=== PATIENT | male | born 1975 | race Caucasian/White ===

== ENCOUNTER 2023-06-13 13:55 | Emergency (ER) | payer BC, OTHER ==
[2023-06-13 14:27] LABS: BASOPHILS # (AUTO) 0.1 10^3/uL (0.0-0.1); BASOPHILS % (AUTO) 0.8 %; EOSINOPHILS % (AUTO) 0.3 %; HCT - HEMATOCRIT 52.3 % (42.0-52.0); HGB - HEMOGLOBIN 17.1 g/dL (14.0-18.0); LYMPHOCYTES # (AUTO) 2.6 10^3/uL (1.5-3.5); LYMPHOCYTES % (AUTO) 24.4 %; MEAN CORPUSCULAR HEMOGLOBIN 28.8 pg (27.0-31.0); MEAN CORPUSCULAR HGB CONC 32.7 g/dL (32.0-36.0); MEAN CORPUSCULAR VOLUME 88.2 fL (80.0-94.0); MEAN PLATELET VOLUME 11.3 fL (7.4-11.4); MONOCYTES % (AUTO) 9.1 %; NEUTROPHILS # (AUTO) 6.8 10^3/uL (1.5-6.6); NEUTROPHILS % (AUTO) 64.9 %; PLT - PLATELET COUNT 269 10^3/uL (130-450); RED BLOOD COUNT 5.93 10^6/uL (4.70-6.10); RED CELL DISTRIBUTION WIDTH 12.3 % (12.0-15.0); VBG BASE EXCESS 2.7 mmol/L (-2 - +2); VBG HCO3 29.7 mmol/L (23-28); VBG PCO2 53.4 mmHg (41-51); VBG PH 7.363 (7.31-7.41); VBG PO2 23.7 mmHg (25-47); VBG TOTAL CO2 31.3 mmol/L (24-29); WHITE BLOOD COUNT 10.4 x10^3/uL (4.8-10.8)
[2023-06-13 14:38] LABS: KETONES, SERUM (ACETEST) NEGATIVE (NEGATIVE)
[2023-06-13 14:40] LABS: LIPASE 10 U/L (11-82)
[2023-06-13 14:42] LABS: ALBUMIN 4.6 g/dL (3.2-5.5); ALBUMIN/GLOBULIN RATIO 1.3 (1.0-2.2); ALKALINE PHOSPHATASE 157 IU/L (42-121); ALT ALANINE AMINOTRANSFERASE 59 IU/L (10-60); AST ASPARTATE AMINOTRANSFERASE 30 IU/L (10-42); BILIRUBIN,TOTAL 1.6 mg/dL (0.2-1.0); BUN - BLOOD UREA NITROGEN 16 mg/dL (6-20); CARBON DIOXIDE - CO2 32 mmol/L (21-32); CHLORIDE 86 mmol/L (101-111); CREATININE 1.3 mg/dL (0.6-1.3); GFR - MDRD 59 (>89); GLUCOSE 707 mg/dL (74-104); POTASSIUM 3.8 mmol/L (3.5-4.5); SODIUM 129 mmol/L (135-145); TOTAL PROTEIN 8.1 g/dL (6.4-8.9)
[2023-06-13 14:59] LABS: ESTIMATED AVERAGE GLUCOSE 295 mg/dL (70-100); HEMOGLOBIN A1c% 11.9 % (4.27-6.07)
[2023-06-13] MEDS ORDERED: INSULIN REGULAR HUMAN 300 UNIT/3 ML VIAL SUBQ STA (15:29)
[2023-06-13] MEDS ORDERED: SODIUM CHLORIDE 0.9% 1,000 ML IV STA (15:29)
--- NOTE | 2023-06-13 15:47 | ED Physician Documentation ---
History of Present Illness - Stated complaint Stated Complaint: DIZZINESS,HIGH BLOOD SUGAR - Chief complaint Chief Complaint: General - History obtained from History obtained from: Patient - History of Present Illness Pain level max: 0 Pain level now: 0 - Additonal information Additional information: Patient is a 48-year-old male who presents to the urgency department stating that he felt lightheaded and nauseated this morning. No vomiting. Went to the walk-in clinic where they checked his blood sugar and it read "high" on the glu cometer. He is not having any pain currently. No fevers. No chills. He states he does take blood pressure medication at home. Has not seen a primary care provider in over a year. He has had increased urination over the past 4 to 5 days. He states his vision feels slightly blurry as well. Review of Systems Constitutional: denies: Fever, Chills Respiratory: denies: Cough GI: reports: Nausea. denies: Vomiting, Diarrhea Skin: denies: Rash Musculoskeletal: denies: Neck pain, Back pain Neurologic: denies: Headache, LOC PD PAST MEDICAL HISTORY - Past Medical History Past Medical History: Yes Cardiovascular: Congestive heart failure, Hypertension Respiratory: Sleep apnea Neuro: None Endocrine/Autoimmune: None GI: None : None HEENT: None Psych: None Musculoskeletal: None Derm: None - Past Surgical History Past Surgical History: Yes General: Cholecystectomy HEENT: Tonsil/Adenoidectomy - Present Medications Home Medications: Ambulatory Orders Medication Instructions Recorded Confirmed Amlodipine Besylate [Norvasc] 1 tab PO DAILY 06/13/23 06/13/23 Losartan [Cozaar] 1 tab PO DAILY 06/13/23 06/13/23 hydroCHLOROthiazide [Hydrodiuril] 1 tab PO DAILY 06/13/23 06/13/23 - Allergies Allergies/Adverse Reactions: Allergies Allergy/AdvReac Type Severity Reaction Status Date / Time No Known Drug Allergies Allergy Verified 06/13/23 14:00 - Social History Does the pt smoke?: No Smoking Status: Never smoker Does the pt drink ETOH?: No Does the pt have substance abuse?: No - Immunizations Immunizations are current?: Yes PD ED PE NORMAL - Vitals Vital signs reviewed: Yes - General General: Alert and oriented X 3, No acute distress - HEENT HEENT: PERRL, Moist mucous membranes - Neck Neck: Supple, no meningeal sign - Cardiac Cardiac: RRR, Strong equal pulses - Respiratory Respiratory: No respiratory distress, Clear bilaterally - Abdomen Abdomen: Soft, Non tender, Non distended - Derm Derm: Warm and dry - Extremities Extremities: No edema, No calf tenderness / cord - Neuro Neuro: Alert and oriented X 3 - Psych Psych: Normal mood, Normal affect Results - Vitals Vitals: Vital Signs - 24 hr 06/13/23 06/13/23 14:00 17:26 Temperature 36.8 C Heart Rate 100 91 Respiratory 18 16 Rate Blood Pressure 150/100 H 143/85 H O2 Saturation 92 95 Oxygen O2 Source Room air - Labs Labs: Laboratory Tests 06/13/23 06/13/23 06/13/23 14:10 14:19 14:19 WBC 10.4 RBC 5.93 Hgb 17.1 Hct 52.3 H MCV 88.2 MCH 28.8 MCHC 32.7 RDW 12.3 Plt Count 269 MPV 11.3 Neut # (Auto) 6.8 H Lymph # (Auto) 2.6 Wells # (Auto) 1.0 Eos # (Auto) 0.0 Baso # (Auto) 0.1 Absolute Nucleated RBC 0.00 Nucleated RBC % 0.0 VBG pH VBG pCO2 VBG pO2 VBG HCO3 VBG Total CO2 VBG O2 Saturation VBG Base Excess Sodium 129 L Potassium 3.8 Chloride 86 L Carbon Dioxide 32 Anion Gap 11.0 BUN 16 Creatinine 1.3 Estimated GFR (MDRD) 59 L Glucose 707 H* POC Whole Bld Glucose Estimat Average Glucose Hemoglobin A1c % Calcium 10.0 Total Bilirubin 1.6 H AST 30 ALT 59 Alkaline Phosphatase 157 H Total Protein 8.1 Albumin 4.6 Globulin 3.5 Albumin/Globulin Ratio 1.3 Lipase 10 L Urine Color YELLOW Urine Clarity CLEAR Urine pH 6.0 Ur Specific [place] <=1.005 Urine Protein NEGATIVE Urine Glucose (UA) >=1000 H Urine Ketones TRACE Urine Occult Blood NEGATIVE Urine Nitrite NEGATIVE Urine Bilirubin NEGATIVE Urine Urobilinogen 0.2 (NORMAL) Ur Leukocyte Esterase NEGATIVE Ur Microscopic Review NOT INDICATED Urine Culture Comments NOT INDICATED Serum Ketones NEGATIVE 06/13/23 06/13/23 06/13/23 14:19 14:19 17:12 WBC RBC Hgb Hct MCV MCH MCHC RDW Plt Count MPV Neut # (Auto) Lymph # (Auto) Wells # (Auto) Eos # (Auto) Baso # (Auto) Absolute Nucleated RBC Nucleated RBC % VBG pH 7.363 VBG pCO2 53.4 H VBG pO2 23.7 L VBG HCO3 29.7 H VBG Total CO2 31.3 H VBG O2 Saturation 44.0 L VBG Base Excess 2.7 H Sodium Potassium Chloride Carbon Dioxide Anion Gap BUN Creatinine Estimated GFR (MDRD) Glucose POC Whole Bld Glucose 485 H Estimat Average Glucose 295 H Hemoglobin A1c % 11.9 H Calcium Total Bilirubin AST ALT Alkaline Phosphatase Total Protein Albumin Globulin Albumin/Globulin Ratio Lipase Urine Color Urine Clarity Urine pH Ur Specific [place] Urine Protein Urine Glucose (UA) Urine Ketones Urine Occult Blood Urine Nitrite Urine Bilirubin Urine Urobilinogen Ur Leukocyte Esterase Ur Microscopic Review Urine Culture Comments Serum Ketones PD Medical Decision Making - ED course Complexity details: reviewed results, re-evaluated patient, considered differential, d/w patient ED course: Patient was given IV fluids, insulin. Blood sugar decreased. His average blood sugars around 300 at home. He has an appointment with his PCP in the morning, therefore no medication is prescribed tonight. Will allow his PCP to choose the diabetic medication of preference in the morning. Patient counseled to avoid sugars and follow a diabetic diet. No evidence of DKA. Nausea resolved. Tolerating p.o. without difficulty here. Patient is well-appearing, nontoxic. Afebrile. Patient counseled regarding signs and symptoms for which I believe and urgent re-evaluation would be necessary. Patient with good understanding of and agreement to plan and is comfortable going home at this time This document was made in part using voice recognition software. While efforts are made to proofread this document, sound alike and grammatical errors may occur. Departure - Departure Disposition: 01 Home, Self Care Clinical Impression: New onset type 2 diabetes mellitus Condition: Good Instructions: ED Hyperglycemia New Susp Diabetes Follow-Up: [facility] [Provider Group] - Within 1 week Comments: Your blood sugar today was 700 upon arrival to the emergency department. It is down to 485 after IV fluids and insulin. You are given metformin here as well. Your hemoglobin A1c is 11.9. Your estimated average glucose is 295. Your creatinine is 1.3 with an estimated GFR of 59. Your liver function test show a mildly elevated alkaline phosphatase at 157, your AST is 30 and ALT is 59. As you have an appointment with your primary care provider in the morning, we will hold off on prescribing medications tonight and allow them to start you on medication for your diabetes tomorrow. You need to limit your sugar intake, limit your carbohydrate intake and follow-up closely with your doctor as scheduled in the morning. Please return if you worsen. Forms: PCP List Discharge Date/Time: 06/13/23 17:38
[2023-06-13 16:36] LABS: BILIRUBIN,URINE NEGATIVE (NEGATIVE); GLUCOSE, URINE (UA) >=1000 mg/dL (NEGATIVE); KETONES,URINE (UA) TRACE mg/dL (NEGATIVE); LEUKOCYTE ESTERASE, URINE NEGATIVE (NEGATIVE); NITRITE,URINE NEGATIVE (NEGATIVE); OCCULT BLOOD,URINE NEGATIVE (NEGATIVE); PROTEIN,URINE NEGATIVE (NEGATIVE); UROBILINOGEN,URINE 0.2 (NORMAL) E.U./dL (NORMAL)
[2023-06-13 16:40] LABS: CLARITY,URINE CLEAR (CLEAR)
[2023-06-13] MEDS ORDERED: metFORMIN 500 MG TABLET PO STA (17:23)
[2023-06-13 17:33] VITALS: BP 143/85; O2SAT 95
== END 2023-06-13 17:38 | disposition home or self-care (01) ==
LOC: ED 13:55
DX: E11.9 Type 2 diabetes mellitus without complications (principal); I10 Essential (primary) hypertension
CPT/HCPCS: 36415; 80053; 81003; 82009; 82803; 83036; 83690; 85025; 96360; 99283; A9270; J1815; 81001; 87086

== ENCOUNTER 2023-07-12 11:00 | Outpatient (CLI) | payer BC, OTHER ==
--- NOTE | 2023-07-12 11:51 | Sleep Patient Instructions ---
Sleep Center Visit Summary - Patient Visit Information Reason for Visit: Initial consult for evaluation of sleep disordered breathing and other sleep issues. - Patient Instructions Additional Instructions: You will continue with CPAP therapy with pressure set at 4-10 cmH2O. A supply prescription will be updated with your chosen DME supplier. We encourage you to continue to try to lose weight. Please follow up with the sleep care office in 1 year. - Clinic Information Contact: [facility] [address] [place] [address] [email or web address] T: [phone]
--- NOTE | 2023-07-12 11:56 | SLEEP CARE CONSULTATION ---
Information from patient questionnaire entered by Luther Sloan. I have reviewed and concur with the information entered by Luther Sloan. This document represents the service I personally performed and the decisions made by me, Kathy Schultz ARNP. History of Present Illness Service Date and Time: 07/12/2023 1100 Reason for Visit: New patient, Previously diagnosed sleep apnea, sleep apnea on CPAP therapy Chief Complaint: reports: Other (Update supplies) Date of Onset: 2014 Usual bedtime: 10 PM Time it takes to fall asleep: 10 minutes Snores at night: Yes Observed to quit breathing while asleep: Yes Sleeps alone due to snoring: No Number of times waking at night: 2-3 Reasons for waking at night: reports: Snoring, Bathroom, Other (Unknown reason) Toss, Turn, or Twitch while sleeping: Yes Recalls having dreams: No Usually gets out of bed at: 0630 Feels refreshed in the morning: No Morning headache: Yes (After shower) Sleepy or fatigued during the day: Yes Ever fallen asleep while driving: Yes Takes day naps: Yes Dreams during day naps: No Prior sleep studies: Yes Year and Where: 2021 [facility] Type of Sleep Study: Polysomnography Additional HPI information: GIOVANI BAIRD was previously diagnosed to have severe, AHI 40.2, obstructive sleep apnea-hypopnea syndrome as seen in sleep study dated 10/06/21 through [facility] in [facility] and comes in today to establish care for CPAP therapy. - Parasomnia Symptoms Ever been unable to move upon waking from sleep: No Walks in sleep: No Talks in sleep: No Ever acted out dreams in sleep: No Ever felt weak in the knees when startled or emotional: No Bothered by creepy, crawly, restless sensations in legs: Yes Problems with memory or concentration: Yes CPAP Compliance Data - Data Reviewed with Patient Average duration of nightly device use: 8 hours 15 minutes Compliance rate %: 99 (179/180 days used; 01/14/23-07/12/23) Current pressure setting (cmH2O): 4-10 Average residual AHI: 1.5 Central apnea: 0.2 Obstructive apnea: 0.7 Average large leak: 4.8 L/min Compliance data discussion: He has a ResMed Airsense 10. He is using a full face mask, ResMed Quattro, small cushion. He has not been able to get supplies since he retired from about a year ago. Subjective Missed days of use due to: reports: travel Patient concerns: reports: mask leak noise. denies: aerophagia, mask discomfort, air blowing in eyes, condensation in mask/hose, nasal congestion, dr y mouth, nose, throat, epistaxis Observed to snore while using device: No Current pressure setting perceived as: comfortable On therapy, patient: reports: sleeping better, awakening more refreshed, being more awake and alert during the day, more rested overall. 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 Patient is and lives in [place]. Have you smoked in the past 12 months: No Alcohol use: Yes Alcohol amount and frequency: Minimal, minimal Caffeine use: No Family History Family history of sleep disordered breathing: No Allergies and Home Medications Known drug allergies: No Drug allergies reviewed: Yes Home medication list reviewed: Yes Allergy and home medication list: Allergies No Known Drug Allergies Allergy (Verified 06/13/23 14:00) Medications: HCTZ 25 mg daily Amlodipine 10 mg daily Losartan 50 mg daily Metformin 500 mg twice a day rosuvastatin (thinks this is the right -statin) Review of Systems Cardiovascular: reports: high blood pressure Gastrointestinal: reports: heartburn, diarrhea Urinary: reports: frequency, urgency Neurological: reports: headaches Psychiatric: reports: anxiety Ear/Nose/Throat: reports: nasal congestion, sinus problems Physical Exam Vital signs obtained and entered by: Kathy Crowley NP Blood Pressure: 122/69 Cuff size: wrist (right) Heart Rate: 89 O2 Saturation: 94 Height: 5 ft 11 in Weight: 319 lb 12.8 oz Body Mass Index: 44.6 BMI Classification: Morbidly Obese Heart: regular rate and rhythm Lungs: clear bilaterally Impression and Plan 1. Obstructive Sleep Apnea-Hypopnea Syndrome, severe, with good treatment compliance and good apnea control. On CPAP therapy, the patient has better sleep quality and is more rested overall. Giovani needs a new CPAP supplier. He has not received any supplies since he retired for over a year. I will have my automotive parts coordinator inform of DME options. A [facility] prescription will then be made. Patient advised to contact this office if further supply problems. Patient is satisfied with current CPAP therapy and has significant improvement of his sleep apnea. Patient denies problems with oral dryness, nasal congestion, epistaxis, skin irritation or aerophagia. Patient's apnea severity and rationale for treatment to reduce apnea, improve sleep quality and reduce cardiovascular and cerebrovascular events was reviewed. I also reviewed the benefit of consistent device use of CPAP for hypertension, diabetes, gastric reflux and anxiety. 2. Obesity, unspecified. Currently patients BMI is 44.6. Obesity increases the risk of apnea, CPAP pressure requirements and overall health risks especially c ardiovascular and diabetes. Thus patient is advised to lose weight. * Continue auto CPAP pressure at 4-10 cmH2O * Update supply prescription * Notify me if snoring with mask or feeling that the pressure is too much or too little * Attempt to lose weight * Call this office if any problems using CPAP * Return for follow up in 12 months, or sooner if concerns arise Continue with device pressure at (cmH2O): 4-10 Counseling Topics: Spare mask, Weight loss health impact Prescriptions: Device supplies Follow up with Sleep Care in: 1 year Visit Type: In Office Time Spent with Patient (minutes): 33 Provider Statement: I spent 100% of the Face to Face Visit with the patient with greater than 50% spent counseling the patient and coordination of care.
[2023-07-12 12:07] VITALS: BP 122/69; O2SAT 94
== END 2023-07-12 11:01 | disposition home or self-care (01) ==
LOC: SC 11:00
PROVIDERS: ATTEND Nurse Practitioner Family
DX: G47.33 Obstructive sleep apnea (adult) (pediatric) (principal); E66.01 Morbid (severe) obesity due to excess calories; Z68.41 Body mass index [BMI] 40.0-44.9, adult
CPT/HCPCS: 99203; 99212